=== PATIENT | male | born 1975 | race Caucasian/White ===

== ENCOUNTER → 2022-03-15 | Outpatient (CLI) | payer OTHER | LOC: M PLAIMG 13:45 | PROVIDERS: ATTEND Physician Assistant | DX: R06.00 Dyspnea, unspecified (principal) ==

== ENCOUNTER → 2022-04-12 | Outpatient (CLI) | payer OTHER ==
[~2022-04-12] MED LIST: METHACHOLINE KIT (J7674) INH ONE
== END ==
LOC: M CARPUL 10:42
PROVIDERS: ATTEND Physician Assistant
DX: R06.00 Dyspnea, unspecified (principal)
CPT/HCPCS: 94070; J7674

== ENCOUNTER → 2024-05-03 | Outpatient (REF) | payer OTHER ==
[~2024-05-03] MED LIST changes: +DILT30TA PO; +LOSA100T8 PO; -METHACHOLINE KIT (J7674) INH ONE; +ROSU10TA61 PO; +VITMTA PO; +ZOLO100T PO
== END ==
LOC: M LAB REF 10:12
PROVIDERS: ATTEND Nurse Practitioner Family
DX: R19.7 Diarrhea, unspecified (principal)

== ENCOUNTER → 2024-05-27 | Outpatient (CLI) | payer OTHER ==
[2024-05-29 15:04] LABS: ANA SCREEN, IFA NEGATIVE (NEGATIVE)
== END ==
LOC: M LAB 14:40
PROVIDERS: ATTEND Internal Medicine Pulmonary Disease
DX: R94.2 Abnormal results of pulmonary function studies (principal)

== ENCOUNTER → 2024-07-03 | Outpatient (CLI) | payer OTHER | LOC: M RAD 07:42 | PROVIDERS: ATTEND Nurse Practitioner Family | DX: K75.81 Nonalcoholic steatohepatitis (NASH) (principal); R16.0 Hepatomegaly, not elsewhere classified ==

== ENCOUNTER → 2025-01-14 | Outpatient (CLI) | payer OTHER | LOC: M SLEEP 12-22 20:00 | PROVIDERS: ATTEND Internal Medicine Critical Care Medicine | DX: G47.33 Obstructive sleep apnea (adult) (pediatric) (principal) ==

== ENCOUNTER → 2025-07-22 | Outpatient (CLI) | payer OTHER | LOC: M RAD 08:19 | PROVIDERS: ATTEND Registered Nurse | DX: K80.20 Calculus of gallbladder without cholecystitis without obstruction (principal) ==